=== PATIENT | female | born 2000 | race Caucasian/White ===

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

== ENCOUNTER 2025-08-31 23:20 | Emergency (ER) | payer OTHER ==
[~2025-08-31] VITALS: Ht 160 cm; Wt 52.2 kg
[~2025-08-31 23:20] MED LIST changes: +AVIANE-28 TABL1 EACH PO
[2025-08-31 23:57] VITALS: BP 141/106
[2025-09-01] MEDS ORDERED: RX Prepack 6 Tabs Oxycodone 5mg UD ONE (00:30)
[2025-09-01] MEDS ORDERED: AMOCLA875 PO (00:35)
[2025-09-01] MEDS ORDERED: IBUP600 PO (00:35)
[2025-09-01] MEDS ORDERED: HYDR1TAB94 PO (00:35)
== END 2025-09-01 00:41 | disposition home or self-care (01) ==
LOC: ER 23:20
DX: M27.69 Other endosseous dental implant failure (principal)
CPT/HCPCS: 99282; A9270